=== PATIENT | female | born 1940 | race Caucasian/White ===

== ENCOUNTER 2021-10-20 18:39 | Inpatient (IN) ==
[2021-10-21] MEDS ORDERED: CYANOCOBALAMIN 1000 MCG/ML IM SCH (22:00)
[2021-10-22 08:18] LABS: Basophils % 0.8 %; Eosinophils # 0.2 K/mcL (0.0-0.6); Eosinophils % 3.4 %; Hemoglobin 8.2 g/dL (11.5-15.4); Immature Granulocytes % 0.8 % (0-4); Lymphocytes # 1.3 K/mcL (0.6-4.6); Lymphocytes % 26.5 %; Mean Corpuscular HGB Conc 29.3 g/dL (31.6-35.5); Mean Corpuscular Hemoglobin 26.5 pg (28.0-33.3); Mean Corpuscular Volume 90.6 fL (83.0-100.0); Mean Platelet Volume 10.8 fL (9.4-12.4); Monocytes # 0.5 K/mcL (0.0-1.3); Monocytes % 10.9 %; Neutrophils # 2.7 K/mcL (1.6-8.9); Platelet Count 144 K/mcL (140-400); Red Blood Count 3.09 M/mcL (3.82-4.97); Red Cell Distribution Width 15.1 % (11.5-14.5); Segmented Neutrophils % 57.6 %; White Blood Count 4.8 K/mcL (4.3-11.1)
[2021-10-22] MEDS ORDERED: Cholecalciferol (D-3) 1,000 UNIT (25MCG) TABLET PO SCH (09:00)
[2021-10-22 09:06] LABS: Calcium 7.9 mg/dL (8.6-10.3)
[2021-10-22] MEDS: INULIN 2 GM PO SCH (09:26)
[2021-10-22] MEDS: Latanoprost 2.5 ML BOTTLE BOTH EYES SCH ×2 (10:29→22:17)
[2021-10-22] MEDS: Nystatin Ointment 15 GM TUBE TP SCH ×4 (10:29→22:17)
[2021-10-23] MEDS: Cholecalciferol (D-3) 1,000 UNIT (25MCG) TABLET PO SCH (11:20)
[2021-10-23] MEDS: INULIN 2 GM PO SCH (11:20)
[2021-10-23] MEDS: Nystatin Ointment 15 GM TUBE TP SCH ×4 (11:21→21:08)
[2021-10-23] MEDS: Latanoprost 2.5 ML BOTTLE BOTH EYES SCH ×2 (11:21→21:08)
[2021-10-24] MEDS: Cholecalciferol (D-3) 1,000 UNIT (25MCG) TABLET PO SCH (10:22)
[2021-10-24] MEDS: Nystatin Ointment 15 GM TUBE TP SCH ×4 (10:22→20:56)
[2021-10-24] MEDS: Latanoprost 2.5 ML BOTTLE BOTH EYES SCH ×2 (10:22→20:56)
[2021-10-24] MEDS: INULIN 2 GM PO SCH (10:22)
[2021-10-24] MEDS: *HR* Heparin 5,000 UNIT/ML VIAL SQ SCH (17:50)
[2021-10-25] MEDS: *HR* Heparin 5,000 UNIT/ML VIAL SQ SCH ×2 (05:17→16:42)
[2021-10-25 07:25] LABS: Hematocrit 27.4 % (35.3-44.9); Mean Corpuscular HGB Conc 29.2 g/dL (31.6-35.5); Mean Corpuscular Hemoglobin 26.1 pg (28.0-33.3); Mean Corpuscular Volume 89.5 fL (83.0-100.0); Mean Platelet Volume 10.2 fL (9.4-12.4); Platelet Count 212 K/mcL (140-400); Red Blood Count 3.06 M/mcL (3.82-4.97); Red Cell Distribution Width 15.3 % (11.5-14.5)
[2021-10-25 07:43] LABS: Magnesium 1.3 mg/dL (1.6-2.6); Potassium 4.2 mEq/L (3.5-5.1)
[2021-10-25] MEDS: Latanoprost 2.5 ML BOTTLE BOTH EYES SCH ×2 (09:59→19:41)
[2021-10-25] MEDS: Nystatin Ointment 15 GM TUBE TP SCH ×4 (09:59→19:41)
[2021-10-25] MEDS: Magnesium Oxide 400 MG TABLET PO SCH (09:59)
[2021-10-25] MEDS: INULIN 2 GM PO SCH (09:59)
[2021-10-25] MEDS: Cholecalciferol (D-3) 1,000 UNIT (25MCG) TABLET PO SCH (09:59)
[2021-10-26] MEDS: *HR* Heparin 5,000 UNIT/ML VIAL SQ SCH ×2 (05:25→16:24)
[2021-10-26] MEDS: Magnesium Oxide 400 MG TABLET PO SCH (09:51)
[2021-10-26] MEDS: Nystatin Ointment 15 GM TUBE TP SCH ×4 (09:51→20:30)
[2021-10-26] MEDS: Cholecalciferol (D-3) 1,000 UNIT (25MCG) TABLET PO SCH (09:51)
[2021-10-26] MEDS: INULIN 2 GM PO SCH (09:52)
[2021-10-26] MEDS: Latanoprost 2.5 ML BOTTLE BOTH EYES SCH ×2 (09:52→20:27)
[2021-10-27] MEDS: *HR* Heparin 5,000 UNIT/ML VIAL SQ SCH ×2 (06:09→17:36)
[2021-10-27 07:31] LABS: Hematocrit 30.7 % (35.3-44.9); Hemoglobin 8.5 g/dL (11.5-15.4); Mean Corpuscular HGB Conc 27.7 g/dL (31.6-35.5); Mean Corpuscular Hemoglobin 26.7 pg (28.0-33.3); Mean Corpuscular Volume 96.5 fL (83.0-100.0); Mean Platelet Volume 10.8 fL (9.4-12.4); Platelet Count 234 K/mcL (140-400); Red Blood Count 3.18 M/mcL (3.82-4.97); Red Cell Distribution Width 15.4 % (11.5-14.5); White Blood Count 4.9 K/mcL (4.3-11.1)
[2021-10-27 07:49] LABS: Calcium 8.4 mg/dL (8.6-10.3); Potassium 5.4 mEq/L (3.5-5.1)
[2021-10-27] MEDS: Cholecalciferol (D-3) 1,000 UNIT (25MCG) TABLET PO SCH (09:38)
[2021-10-27] MEDS: Magnesium Oxide 400 MG TABLET PO SCH (09:38)
[2021-10-27] MEDS: Latanoprost 2.5 ML BOTTLE BOTH EYES SCH ×2 (09:38→20:41)
[2021-10-27] MEDS: Nystatin Ointment 15 GM TUBE TP SCH ×4 (09:39→20:42)
[2021-10-27] MEDS: INULIN 2 GM PO SCH (09:39)
[2021-10-27] MEDS: Ondansetron ODT 4 MG TAB.RAPDIS SL PRN (10:19)
[2021-10-28] MEDS: *HR* Heparin 5,000 UNIT/ML VIAL SQ SCH ×2 (05:13→17:50)
[2021-10-28 07:39] LABS: Hemoglobin 8.2 g/dL (11.5-15.4); Mean Corpuscular HGB Conc 29.3 g/dL (31.6-35.5); Mean Corpuscular Hemoglobin 26.1 pg (28.0-33.3); Mean Corpuscular Volume 89.2 fL (83.0-100.0); Mean Platelet Volume 10.5 fL (9.4-12.4); Platelet Count 221 K/mcL (140-400); Red Blood Count 3.14 M/mcL (3.82-4.97); Red Cell Distribution Width 15.1 % (11.5-14.5); White Blood Count 5.4 K/mcL (4.3-11.1)
[2021-10-28 08:01] LABS: Calcium 8.1 mg/dL (8.6-10.3); Magnesium 1.4 mg/dL (1.6-2.6); Potassium 3.8 mEq/L (3.5-5.1)
[2021-10-28] MEDS: Cholecalciferol (D-3) 1,000 UNIT (25MCG) TABLET PO SCH (08:02)
[2021-10-28] MEDS: Magnesium Oxide 400 MG TABLET PO SCH ×2 (08:02→23:08)
[2021-10-28] MEDS: Nystatin Ointment 15 GM TUBE TP SCH ×4 (08:03→23:11)
[2021-10-28] MEDS: Latanoprost 2.5 ML BOTTLE BOTH EYES SCH ×2 (08:03→23:10)
[2021-10-28] MEDS: INULIN 2 GM PO SCH (08:03)
[2021-10-29] MEDS: *HR* Heparin 5,000 UNIT/ML VIAL SQ SCH ×2 (06:18→16:36)
[2021-10-29] MEDS: Cholecalciferol (D-3) 1,000 UNIT (25MCG) TABLET PO SCH (09:40)
[2021-10-29] MEDS: Magnesium Oxide 400 MG TABLET PO SCH ×2 (09:44→23:43)
[2021-10-29] MEDS: Latanoprost 2.5 ML BOTTLE BOTH EYES SCH ×2 (09:45→23:44)
[2021-10-29] MEDS: Nystatin Ointment 15 GM TUBE TP SCH ×4 (09:46→23:43)
[2021-10-29] MEDS: INULIN 2 GM PO SCH (09:47)
[2021-10-30] MEDS: *HR* Heparin 5,000 UNIT/ML VIAL SQ SCH ×2 (06:43→16:38)
[2021-10-30 07:25] LABS: Hemoglobin 7.9 g/dL (11.5-15.4); Mean Corpuscular HGB Conc 30.4 g/dL (31.6-35.5); Mean Corpuscular Hemoglobin 26.9 pg (28.0-33.3); Mean Corpuscular Volume 88.4 fL (83.0-100.0); Mean Platelet Volume 10.6 fL (9.4-12.4); Platelet Count 189 K/mcL (140-400); Red Blood Count 2.94 M/mcL (3.82-4.97); Red Cell Distribution Width 14.8 % (11.5-14.5); White Blood Count 5.2 K/mcL (4.3-11.1)
[2021-10-30 07:50] LABS: Calcium 8.4 mg/dL (8.6-10.3); Potassium 3.5 mEq/L (3.5-5.1)
[2021-10-30] MEDS: Magnesium Oxide 400 MG TABLET PO SCH ×2 (08:05→20:19)
[2021-10-30] MEDS: Latanoprost 2.5 ML BOTTLE BOTH EYES SCH ×2 (08:06→20:18)
[2021-10-30] MEDS: Cholecalciferol (D-3) 1,000 UNIT (25MCG) TABLET PO SCH (08:06)
[2021-10-30] MEDS: Nystatin Ointment 15 GM TUBE TP SCH ×4 (08:07→20:19)
[2021-10-30] MEDS: INULIN 2 GM PO SCH (08:07)
[2021-10-30] MEDS: 0.9 % Sodium Chloride 1,000 ML IVC SCH (14:32)
[2021-10-31] MEDS: 0.9 % Sodium Chloride 1,000 ML IVC SCH (03:59)
[2021-10-31] MEDS: *HR* Heparin 5,000 UNIT/ML VIAL SQ SCH ×2 (05:28→16:54)
[2021-10-31 07:58] LABS: Potassium 3.6 mEq/L (3.5-5.1)
[2021-10-31] MEDS: Magnesium Oxide 400 MG TABLET PO SCH ×2 (08:29→19:45)
[2021-10-31] MEDS: Cholecalciferol (D-3) 1,000 UNIT (25MCG) TABLET PO SCH (08:29)
[2021-10-31] MEDS: Nystatin Ointment 15 GM TUBE TP SCH ×4 (08:30→19:46)
[2021-10-31] MEDS: Latanoprost 2.5 ML BOTTLE BOTH EYES SCH ×2 (08:31→19:46)
[2021-10-31] MEDS: INULIN 2 GM PO SCH (08:31)
[2021-11-01] MEDS: *HR* Heparin 5,000 UNIT/ML VIAL SQ SCH ×2 (05:14→17:19)
[2021-11-01] MEDS: Cholecalciferol (D-3) 1,000 UNIT (25MCG) TABLET PO SCH (08:03)
[2021-11-01] MEDS: Magnesium Oxide 400 MG TABLET PO SCH ×2 (08:04→19:53)
[2021-11-01] MEDS: INULIN 2 GM PO SCH (08:05)
[2021-11-01] MEDS: Nystatin Ointment 15 GM TUBE TP SCH ×4 (08:05→19:54)
[2021-11-01] MEDS: Latanoprost 2.5 ML BOTTLE BOTH EYES SCH ×2 (08:06→19:54)
[2021-11-01] MEDS: Acetaminophen 325 MG TABLET PO PRN (12:15)
[2021-11-02] MEDS: *HR* Heparin 5,000 UNIT/ML VIAL SQ SCH ×2 (05:12→17:25)
[2021-11-02] MEDS: Acetaminophen 325 MG TABLET PO PRN (07:45)
[2021-11-02] MEDS: Magnesium Oxide 400 MG TABLET PO SCH ×2 (07:45→19:53)
[2021-11-02] MEDS: Cholecalciferol (D-3) 1,000 UNIT (25MCG) TABLET PO SCH (07:46)
[2021-11-02] MEDS: Latanoprost 2.5 ML BOTTLE BOTH EYES SCH ×2 (07:47→19:54)
[2021-11-02] MEDS: INULIN 2 GM PO SCH (07:47)
[2021-11-02] MEDS: Nystatin Ointment 15 GM TUBE TP SCH ×4 (07:47→20:04)
[2021-11-02 08:46] LABS: Hematocrit 30.6 % (35.3-44.9); Hemoglobin 9.2 g/dL (11.5-15.4); Mean Corpuscular HGB Conc 30.1 g/dL (31.6-35.5); Mean Corpuscular Hemoglobin 26.6 pg (28.0-33.3); Mean Corpuscular Volume 88.4 fL (83.0-100.0); Mean Platelet Volume 10.6 fL (9.4-12.4); Platelet Count 203 K/mcL (140-400); Red Blood Count 3.46 M/mcL (3.82-4.97); White Blood Count 6.2 K/mcL (4.3-11.1)
[2021-11-03] MEDS: *HR* Heparin 5,000 UNIT/ML VIAL SQ SCH ×2 (05:22→17:52)
[2021-11-03 07:01] LABS: Calcium 8.6 mg/dL (8.6-10.3); Potassium 3.9 mEq/L (3.5-5.1)
[2021-11-03] MEDS: Acetaminophen 325 MG TABLET PO PRN (07:55)
[2021-11-03] MEDS: Cholecalciferol (D-3) 1,000 UNIT (25MCG) TABLET PO SCH (07:55)
[2021-11-03] MEDS: Magnesium Oxide 400 MG TABLET PO SCH ×2 (07:56→19:34)
[2021-11-03] MEDS: INULIN 2 GM PO SCH (07:57)
[2021-11-03] MEDS: Latanoprost 2.5 ML BOTTLE BOTH EYES SCH ×2 (07:57→19:35)
[2021-11-03] MEDS: Nystatin Ointment 15 GM TUBE TP SCH ×4 (07:57→19:39)
[2021-11-03] MEDS: Ondansetron ODT 4 MG TAB.RAPDIS SL PRN (12:02)
[2021-11-03] MEDS: 0.9 % Sodium Chloride 1,000 ML IVC SCH (15:19)
[2021-11-04] MEDS: 0.9 % Sodium Chloride 1,000 ML IVC SCH ×2 (03:13→16:56)
[2021-11-04] MEDS: *HR* Heparin 5,000 UNIT/ML VIAL SQ SCH ×2 (05:46→17:01)
[2021-11-04] MEDS: Cholecalciferol (D-3) 1,000 UNIT (25MCG) TABLET PO SCH (07:57)
[2021-11-04] MEDS: Magnesium Oxide 400 MG TABLET PO SCH ×2 (07:57→21:01)
[2021-11-04] MEDS: Latanoprost 2.5 ML BOTTLE BOTH EYES SCH ×2 (07:58→21:04)
[2021-11-04] MEDS: Nystatin Ointment 15 GM TUBE TP SCH ×4 (08:00→21:05)
[2021-11-04] MEDS: INULIN 2 GM PO SCH (08:59)
[2021-11-05] MEDS: *HR* Heparin 5,000 UNIT/ML VIAL SQ SCH ×2 (05:34→17:21)
[2021-11-05] MEDS: 0.9 % Sodium Chloride 1,000 ML IVC SCH ×2 (07:42→22:01)
[2021-11-05] MEDS: Magnesium Oxide 400 MG TABLET PO SCH ×2 (09:04→20:35)
[2021-11-05] MEDS: Cholecalciferol (D-3) 1,000 UNIT (25MCG) TABLET PO SCH (09:04)
[2021-11-05] MEDS: Nystatin Ointment 15 GM TUBE TP SCH ×4 (09:08→20:37)
[2021-11-05] MEDS: Latanoprost 2.5 ML BOTTLE BOTH EYES SCH ×2 (09:10→20:35)
[2021-11-05] MEDS: INULIN 2 GM PO SCH (14:07)
[2021-11-06] MEDS: *HR* Heparin 5,000 UNIT/ML VIAL SQ SCH ×2 (05:36→17:15)
[2021-11-06] MEDS: Cholecalciferol (D-3) 1,000 UNIT (25MCG) TABLET PO SCH (08:18)
[2021-11-06] MEDS: Magnesium Oxide 400 MG TABLET PO SCH ×2 (08:18→20:07)
[2021-11-06] MEDS: INULIN 2 GM PO SCH (08:19)
[2021-11-06] MEDS: Latanoprost 2.5 ML BOTTLE BOTH EYES SCH ×2 (08:19→20:10)
[2021-11-06] MEDS: Nystatin Ointment 15 GM TUBE TP SCH ×4 (08:27→20:20)
[2021-11-06] MEDS: 0.9 % Sodium Chloride 1,000 ML IVC SCH (11:04)
[2021-11-06] MEDS: Ondansetron ODT 4 MG TAB.RAPDIS SL PRN (17:15)
[2021-11-06 17:30] LABS: Basophils % 0.3 %; Eosinophils # 0.1 K/mcL (0.0-0.6); Eosinophils % 0.6 %; Hematocrit 27.6 % (35.3-44.9); Hemoglobin 8.4 g/dL (11.5-15.4); Immature Granulocytes % 2.1 % (0-4); Lymphocytes # 1.1 K/mcL (0.6-4.6); Lymphocytes % 12.6 %; Mean Corpuscular HGB Conc 30.4 g/dL (31.6-35.5); Mean Corpuscular Hemoglobin 26.5 pg (28.0-33.3); Mean Corpuscular Volume 87.1 fL (83.0-100.0); Mean Platelet Volume 10.1 fL (9.4-12.4); Monocytes # 0.6 K/mcL (0.0-1.3); Neutrophils # 6.9 K/mcL (1.6-8.9); Platelet Count 161 K/mcL (140-400); Red Blood Count 3.17 M/mcL (3.82-4.97); Red Cell Distribution Width 15.3 % (11.5-14.5); Segmented Neutrophils % 77.4 %; White Blood Count 8.9 K/mcL (4.3-11.1)
[2021-11-06 17:45] LABS: Albumin 2.9 g/dL (3.5-5.7); Bilirubin,Total 0.7 mg/dL (0.3-1.0); Calcium 8.3 mg/dL (8.6-10.3); Potassium 4.1 mEq/L (3.5-5.1); Total Protein 5.9 g/dL (6.4-8.9)
[2021-11-06 21:16] LABS: Campylobacter by PCR Not detected (Not detect)
[2021-11-06 21:18] LABS: Adenovirus F 40/41 PCR Not detected (Not detect); Astrovirus PCR Not detected (Not detect); C.difficile Toxin A/B Gene PCR DETECTED (Not detect); Cryptosporidium by PCR Not detected (Not detect); Cyclospora cayetanensis PCR Not detected (Not detect); E. coli O157 by PCR Not detected (Not detect); Entamoeba histolytica PCR Not detected (Not detect); Enteroaggregative E.coli(EAEC) Not detected (Not detect); Enteropathogenic E.coli(EPEC) Not detected (Not detect); Enterotoxigenic E.coli (ETEC) Not detected (Not detect); Giardia lamblia PCR Not detected (Not detect); Norovirus GI/GII PCR Not detected (Not detect); Plesiomonas shigelloides PCR Not detected (Not detect); Rotavirus A PCR Not detected (Not detect); Salmonella PCR Not detected (Not detect); Sapovirus PCR Not detected (Not detect); Shig/EnteroinvasiveE coli EIEC Not detected (Not detect); Shigalike tox-prod E coli STEC Not detected (Not detect); Vibrio PCR Not detected (Not detect); Vibrio cholerae PCR Not detected (Not detect); Yersinia enterocolitica PCR Not detected (Not detect)
[2021-11-07] MEDS: *HR* Heparin 5,000 UNIT/ML VIAL SQ SCH ×2 (05:00→17:14)
[2021-11-07] MEDS: Cholecalciferol (D-3) 1,000 UNIT (25MCG) TABLET PO SCH (08:39)
[2021-11-07] MEDS: Magnesium Oxide 400 MG TABLET PO SCH ×2 (08:39→19:54)
[2021-11-07] MEDS: INULIN 2 GM PO SCH (08:41)
[2021-11-07] MEDS: Nystatin Ointment 15 GM TUBE TP SCH ×4 (08:58→20:00)
[2021-11-07] MEDS: Vancomycin Oral Soln 125 MG/2.5 ML UDC PO SCH ×4 (09:53→19:57)
[2021-11-07] MEDS: Latanoprost 2.5 ML BOTTLE BOTH EYES SCH ×2 (09:54→19:57)
[2021-11-08] MEDS: *HR* Heparin 5,000 UNIT/ML VIAL SQ SCH ×2 (04:05→17:03)
[2021-11-08] MEDS: Vancomycin Oral Soln 125 MG/2.5 ML UDC PO SCH ×4 (09:33→19:50)
[2021-11-08] MEDS: Magnesium Oxide 400 MG TABLET PO SCH ×2 (09:35→19:50)
[2021-11-08] MEDS: Cholecalciferol (D-3) 1,000 UNIT (25MCG) TABLET PO SCH (09:35)
[2021-11-08] MEDS: Latanoprost 2.5 ML BOTTLE BOTH EYES SCH ×2 (09:36→19:50)
[2021-11-08] MEDS: INULIN 2 GM PO SCH (09:36)
[2021-11-08] MEDS: Nystatin Ointment 15 GM TUBE TP SCH ×4 (09:38→19:50)
[2021-11-08 14:22] LABS: Hematocrit 24.6 % (35.3-44.9); Hemoglobin 7.6 g/dL (11.5-15.4); Mean Corpuscular HGB Conc 30.9 g/dL (31.6-35.5); Mean Corpuscular Hemoglobin 26.6 pg (28.0-33.3); Mean Platelet Volume 9.9 fL (9.4-12.4); Platelet Count 150 K/mcL (140-400); Red Blood Count 2.86 M/mcL (3.82-4.97); Red Cell Distribution Width 15.4 % (11.5-14.5); White Blood Count 8.8 K/mcL (4.3-11.1)
[2021-11-08 14:32] LABS: Magnesium 1.7 mg/dL (1.6-2.6); Potassium 3.8 mEq/L (3.5-5.1)
[2021-11-09] MEDS: Ondansetron ODT 4 MG TAB.RAPDIS SL PRN (01:36)
[2021-11-09] MEDS: *HR* Heparin 5,000 UNIT/ML VIAL SQ SCH ×2 (05:56→17:31)
[2021-11-09] MEDS: Magnesium Oxide 400 MG TABLET PO SCH ×2 (08:41→19:48)
[2021-11-09] MEDS: Vancomycin Oral Soln 125 MG/2.5 ML UDC PO SCH ×4 (08:42→19:48)
[2021-11-09] MEDS: Cholecalciferol (D-3) 1,000 UNIT (25MCG) TABLET PO SCH (08:42)
[2021-11-09] MEDS: Latanoprost 2.5 ML BOTTLE BOTH EYES SCH ×2 (08:43→19:47)
[2021-11-09] MEDS: Nystatin Ointment 15 GM TUBE TP SCH ×4 (08:43→19:48)
[2021-11-09] MEDS: INULIN 2 GM PO SCH (08:43)
[2021-11-10] MEDS: *HR* Heparin 5,000 UNIT/ML VIAL SQ SCH ×2 (05:31→16:44)
[2021-11-10] MEDS: Vancomycin Oral Soln 125 MG/2.5 ML UDC PO SCH ×4 (08:19→21:14)
[2021-11-10] MEDS: Cholecalciferol (D-3) 1,000 UNIT (25MCG) TABLET PO SCH (08:20)
[2021-11-10] MEDS: Magnesium Oxide 400 MG TABLET PO SCH ×2 (08:20→21:14)
[2021-11-10] MEDS: Nystatin Ointment 15 GM TUBE TP SCH ×4 (08:21→21:15)
[2021-11-10] MEDS: Latanoprost 2.5 ML BOTTLE BOTH EYES SCH ×2 (08:23→21:41)
[2021-11-10] MEDS: INULIN 2 GM PO SCH (08:24)
[2021-11-10 08:55] LABS: Basophils % 0.4 %; Eosinophils # 0.1 K/mcL (0.0-0.6); Eosinophils % 0.9 %; Hematocrit 25.7 % (35.3-44.9); Hemoglobin 7.7 g/dL (11.5-15.4); Immature Granulocytes % 2.8 % (0-4); Lymphocytes # 1.1 K/mcL (0.6-4.6); Lymphocytes % 21.3 %; Mean Corpuscular Hemoglobin 26.1 pg (28.0-33.3); Mean Corpuscular Volume 87.1 fL (83.0-100.0); Mean Platelet Volume 10.1 fL (9.4-12.4); Monocytes # 0.3 K/mcL (0.0-1.3); Monocytes % 6.2 %; Neutrophils # 3.7 K/mcL (1.6-8.9); Platelet Count 147 K/mcL (140-400); Red Blood Count 2.95 M/mcL (3.82-4.97); Segmented Neutrophils % 68.4 %; White Blood Count 5.4 K/mcL (4.3-11.1)
[2021-11-10 09:35] LABS: Calcium 8.2 mg/dL (8.6-10.3); Potassium 3.7 mEq/L (3.5-5.1)
[2021-11-11] MEDS: Ondansetron ODT 4 MG TAB.RAPDIS SL PRN ×2 (01:38→05:26)
[2021-11-11] MEDS: *HR* Heparin 5,000 UNIT/ML VIAL SQ SCH ×2 (05:24→17:24)
[2021-11-11] MEDS: Magnesium Oxide 400 MG TABLET PO SCH ×2 (07:55→20:26)
[2021-11-11] MEDS: Cholecalciferol (D-3) 1,000 UNIT (25MCG) TABLET PO SCH (07:55)
[2021-11-11] MEDS: Vancomycin Oral Soln 125 MG/2.5 ML UDC PO SCH ×4 (07:56→20:26)
[2021-11-11] MEDS: INULIN 2 GM PO SCH (07:57)
[2021-11-11] MEDS: Latanoprost 2.5 ML BOTTLE BOTH EYES SCH ×2 (07:57→20:27)
[2021-11-11] MEDS: Nystatin Ointment 15 GM TUBE TP SCH ×4 (07:57→20:32)
[2021-11-12] MEDS: *HR* Heparin 5,000 UNIT/ML VIAL SQ SCH ×2 (05:31→17:51)
[2021-11-12] MEDS: Nystatin Ointment 15 GM TUBE TP SCH ×4 (08:47→20:28)
[2021-11-12] MEDS: Vancomycin Oral Soln 125 MG/2.5 ML UDC PO SCH ×4 (08:47→20:09)
[2021-11-12] MEDS: Cholecalciferol (D-3) 1,000 UNIT (25MCG) TABLET PO SCH (08:47)
[2021-11-12] MEDS: Magnesium Oxide 400 MG TABLET PO SCH ×2 (08:47→20:08)
[2021-11-12] MEDS: Latanoprost 2.5 ML BOTTLE BOTH EYES SCH ×2 (08:47→20:09)
[2021-11-12] MEDS: INULIN 2 GM PO SCH (08:48)
[2021-11-12 09:07] LABS: Hematocrit 26.4 % (35.3-44.9); Hemoglobin 7.9 g/dL (11.5-15.4); Mean Corpuscular HGB Conc 29.9 g/dL (31.6-35.5); Mean Corpuscular Hemoglobin 25.6 pg (28.0-33.3); Mean Corpuscular Volume 85.7 fL (83.0-100.0); Mean Platelet Volume 10.4 fL (9.4-12.4); Platelet Count 144 K/mcL (140-400); Red Blood Count 3.08 M/mcL (3.82-4.97); White Blood Count 5.6 K/mcL (4.3-11.1)
[2021-11-12 09:22] LABS: Calcium 8.3 mg/dL (8.6-10.3); Potassium 3.9 mEq/L (3.5-5.1)
[2021-11-13] MEDS: *HR* Heparin 5,000 UNIT/ML VIAL SQ SCH ×2 (05:51→17:25)
[2021-11-13] MEDS: Nystatin Ointment 15 GM TUBE TP SCH ×4 (10:22→20:02)
[2021-11-13] MEDS: Thiamine (B-1) 100 MG, Folic Acid 1 MG, MVI, adult with vitamin K 10 ML in 0.9 % Sodi... IVPB SCH (10:23)
[2021-11-13] MEDS: Magnesium Oxide 400 MG TABLET PO SCH ×2 (10:23→20:02)
[2021-11-13] MEDS: Vancomycin Oral Soln 125 MG/2.5 ML UDC PO SCH ×4 (10:23→20:02)
[2021-11-13] MEDS: Cholecalciferol (D-3) 1,000 UNIT (25MCG) TABLET PO SCH (10:23)
[2021-11-13] MEDS: INULIN 2 GM PO SCH (10:24)
[2021-11-13] MEDS: Latanoprost 2.5 ML BOTTLE BOTH EYES SCH ×2 (10:25→20:03)
[2021-11-14] MEDS: *HR* Heparin 5,000 UNIT/ML VIAL SQ SCH (06:00)
[2021-11-14 07:40] VITALS: BP 96/68; PULSE 80; RESP 15; TEMP 97.8; O2SAT 95
[2021-11-14 07:57] LABS: Hematocrit 27.7 % (35.3-44.9); Hemoglobin 8.2 g/dL (11.5-15.4); Mean Corpuscular HGB Conc 29.6 g/dL (31.6-35.5); Mean Corpuscular Hemoglobin 25.9 pg (28.0-33.3); Mean Corpuscular Volume 87.7 fL (83.0-100.0); Platelet Count 148 K/mcL (140-400); Red Blood Count 3.16 M/mcL (3.82-4.97); Red Cell Distribution Width 15.1 % (11.5-14.5); White Blood Count 7.5 K/mcL (4.3-11.1)
[2021-11-14 08:13] LABS: Calcium 8.5 mg/dL (8.6-10.3); Magnesium 2.1 mg/dL (1.6-2.6); Potassium 3.7 mEq/L (3.5-5.1)
[2021-11-14] MEDS: Vancomycin Oral Soln 125 MG/2.5 ML UDC PO SCH ×2 (09:56→12:49)
[2021-11-14] MEDS: Cholecalciferol (D-3) 1,000 UNIT (25MCG) TABLET PO SCH (09:57)
[2021-11-14] MEDS: Magnesium Oxide 400 MG TABLET PO SCH (09:57)
[2021-11-14] MEDS: Latanoprost 2.5 ML BOTTLE BOTH EYES SCH (09:59)
[2021-11-14] MEDS: INULIN 2 GM PO SCH (10:02)
[2021-11-14] MEDS: Nystatin Ointment 15 GM TUBE TP SCH ×2 (10:02→12:49)
[2021-11-14] MEDS: Thiamine (B-1) 100 MG, Folic Acid 1 MG, MVI, adult with vitamin K 10 ML in 0.9 % Sodi... IVPB SCH (10:03)
[2021-11-18] MEDS ORDERED: Vancomycin Oral Soln 125 MG/2.5 ML UDC PO SCH (09:00)
[2021-11-25] MEDS ORDERED: Vancomycin Oral Soln 125 MG/2.5 ML UDC PO SCH (09:00)
[2021-12-02] MEDS ORDERED: Vancomycin Oral Soln 125 MG/2.5 ML UDC PO SCH (09:00)
[2021-12-09] MEDS ORDERED: Vancomycin Oral Soln 125 MG/2.5 ML UDC PO SCH (09:00)
== END 2021-11-14 15:12 | disposition short-term general hospital (02) ==
LOC: INPPIK 10-21 19:59
PROVIDERS: ADMIT Family Medicine; ATTEND Family Medicine